=== PATIENT | male | born 1955 | race Caucasian/White ===

== ENCOUNTER 2021-12-22 17:31 | Emergency (ER) | payer MEDICARE, MEDICAID, SELFPAY ==
[2021-12-22 17:45] VITALS: BP 141/78; BP 147/58; PULSE 73; PULSE 98; RESP 20; TEMP 36.6; O2SAT 93; O2SAT 98; BMI 34.4
--- NOTE | 2021-12-22 18:08 | ED_ITS ---
HPI - Overdose General Chief Complaint: Overdose Stated Complaint: OD,NARCAN GIVEN W/GOOD RESULT PER EMS Time Seen by Provider: 12/22/21 17:55 Source: patient Mode of arrival: EMS Limitations: no limitations History of Present Illness HPI Narrative: 66-year-old male who presents emergency department for evaluation narcotic overdose. Patient states that that he has a long history prescription drug use which is unchanged in to no in use. States for the last 2 and half years he has been in a Suboxone clinic and has been sober and is not used. He states that he stopped taking Suboxone 1 month prior present no longer wanted to go to the clinic. States that over the past several days he felt he has been withdrawn. He has had no energy. He states he has been having body pain. He decided to use heroin. The patient purchased 4 bags of heroin. He states that he [place] [facility] [place] [facility]. He then used 4 bags intranasally. He was found unresponsive in his car. He was given intranasal Narcan 4 mg x 2 and became responsive. At the time evaluation is awake and alert and answers all questions appropriately. complaint: accidental overdose Onset (ago): minute(s) (30) Timing confirmed by: other (EMS) Intent: other (He was trying to get high and treat his with opiate withdrawal) How Overdose Was Discovered: other (Bystander) Context: Accidental Overdose: wanted to get high and other (Stops Suboxone 1 month prior) Treatments Prior to Arrival: narcan (4 mg intranasal Narcan x2 doses) Related Data Allergies Allergy/AdvReac Type Severity Reaction Status Date / Time No Known Allergies Allergy Verified 12/22/21 18:07 Review of Systems Review of Systems: Yes all other systems are reviewed and are negative [facility] Past Medical History Attestation statement: The following information was validated with the patient. [facility] Narrative: Past medical history: Hypertension, hypothyroidism, thrombophlebitis. Past surgical history: Left knee total knee replacement, left lower extremity phlebitis, social history: Patient states he is unable to work secondary to his knee pain. Smokes 1 pack of cigarettes per day times 30 years. Denies alcohol use. Patient states that he was sober from narcotics for 2 1/2 years and was in a Suboxone program but stopped using Suboxone 1 month prior. Social History Social History Advance Directives: No Advance Directives Information Provided: Yes Physical Exam Vital Signs: Vital Signs: Last Vital Signs Temp 93 F L 12/22/21 17:45 Pulse 73 12/22/21 17:45 Resp 20 12/22/21 17:45 BP 141/78 H 12/22/21 17:45 Pulse Ox 93 12/22/21 17:45 O2 Del Method 12/22/21 17:45 BMI result Body Mass Index 34.4 Const: General: cooperative and no acute distress Orientation/consciousness: oriented to person and oriented to place Limitations: no limitations HEENT: Head: Yes normal to inspection, Yes normocephalic and Yes atraumatic Ears: external ears normal General nose exam: Normal external nose present Face and sinus: Yes normal facial exam Mouth: Normal oral and palatal mucosa present Throat: Yes posterior oropharynx normal Eyes: General: appearance normal, both eyes and all related structures Pupils: Equal, round and reactive pupils present Neck: Neck: Yes normal visual inspection, Yes no lymphadenopathy, Yes trachea midline and Yes supple Chest: Chest palpation & inspection: normal inspection of the chest and normal palpation of entire chest wall Resp: Effort & Inspection: normal respiratory effort and able to speak in complete sentences Auscultation: clear to auscultation bilaterally Cardio: Rate: regular rate Rhythm: regular rhythm Heart sounds: S1 normal heart sound present, S2 normal heart sound present and no murmurs GI: Inspection: Yes normal to inspection Palpation (GI): Soft to palpation, nontender and no guarding Auscultation: normal bowel sounds : General: Yes no CVA tenderness Back/Spine/Pelvis: Back: no CVA tenderness Skin: General skin exam: no rashes or lesions noted Neuro: General: oriented to person and oriented to place Cranial nerves: Yes CN's II-XII intact bilaterally and Yes Equal, round and reactive pupils present Cognition (Neuro): normal cognition Motor exam (neuro): 5/5 motor strength present throughout Extrem: General: Yes normal to inspection Psych: Appearance: grossly normal Speech and movement: Normal speech and movement present Affect: normal affect Attitude: cooperative Thought process: Normal thought process present Thought content: Normal thought content present Course Course Course Narrative: 66-year-old male with a history of opiate use disorder who was in a Suboxone Clinic for 2 and half years and did not use any street opiates until today when he purchased 4 bags of heroin and use them intranasally. Patient was found unresponsive in a [employer] parking lot. Patient was given intranasal Narcan x2 doses with good response. The patient is willing to talk to our crisis counselor/life skills coach to try to get back into a Suboxone program. Patient will be kept on a cardiac and O2 saturation monitor for 2 hours. 1956: Patient was evaluated by the crisis counselor for the SUDE exam. The patient is going to get back into his Suboxone clinic ([facility]) he was also given a list options for counseling. The patient is awake and alert is had no somnolence since being treated with Narcan therefore he will be discharged home. Discharge Plan Discharge Clinical Impression: Drug overdose Patient Disposition: Home, Self-Care Additional Instructions: Follow-up the instructions from our crisis counselor Contact your Suboxone clinic tomorrow to get back in to the clinic. Also contact the counseling numbers given to by the crisis counselor as well. Follow-up with your doctor in 2 days. Please return to the emergency department if your symptoms get worse or if you develop any symptoms that are concerning to you.
--- NOTE | 2021-12-22 20:05 | MHC.CARE ---
T/w met with pt for DIANA macario. Pt was pleasant and cooperative. He states that today he slipped up . Reports he had been sober for 2.5 years and maintained sobriety while on MAT at [facility]. Pt states that he recently completed the suboxone program and today had a bad day . Pt states that he feels he was not properly tapered off his subxone. He expresses interest in therapy and back into his suboxone clinic. He states that he will call them tomorrow because he is most comfortable there and requested a list of therapy agencies that he can call. Pt was provided with this information and encouraged to contact them tomorrow. Pt denies SI/HI. Pt will be d/c back home.
[2021-12-22] MEDS: Naloxone HCl Nasal TAKE HOME 4 MG SPRAY NOSTRILALT ×2 (20:33)
[2021-12-22 20:34] VITALS: BP 122/72; PULSE 72; RESP 18; TEMP 36.9; O2SAT 94
== END 2021-12-22 20:34 | disposition home or self-care (01) ==
PROVIDERS: Emergency Provider Emergency Medicine Emergency Medical Services
DX: T40.1X1A Poisoning by heroin, accidental (unintentional), initial encounter (principal); Y92.810 Car as the place of occurrence of the external cause
CPT/HCPCS: 99284